=== PATIENT | male | born 1975 | race African-American/Black ===

== ENCOUNTER 2022-10-19 23:11 | Emergency (ER) | payer MEDICAID ==
[~2022-10-19] VITALS: Ht 193 cm; Wt 105.0 kg
[2022-10-19 23:15] VITALS: BP 162/90; PULSE 90; RESP 18; TEMP 99.3; O2SAT 99
[2022-10-19] MEDS ORDERED: RISPERIDONE 1MG TABLET PO ONE (23:30)
[2022-10-19] MEDS ORDERED: BUPROPION HCL 75MG TABLET PO ONE (23:30)
== END 2022-10-20 | disposition left against medical advice (07) ==
LOC: ER 23:11
DX: R45.851 Suicidal ideations (principal); F15.90 Other stimulant use, unspecified, uncomplicated
CPT/HCPCS: 99283

== ENCOUNTER 2022-10-20 00:53 | Emergency (ER) | payer MEDICAID, OTHER ==
[~2022-10-20] VITALS: Ht 193 cm; Wt 98.3 kg
[2022-10-20 01:13] VITALS: BP 136/95
[2022-10-20] MEDS ORDERED: ONDANSETRON 4MG ODT PO STA (01:32)
[2022-10-20] MEDS ORDERED: MAGNESIUM/ALUMINUM HYDROXIDE/SIMETHICONE 30ML UDC PO STA (01:32)
[2022-10-20 01:55] LABS: CLARITY URINE CLEAR (CLEAR); COLOR URINE YELLOW (YELLOW); KETONES URINE 1+ (NEGATIVE); LEUKOCYTE ESTERASE URINE NEGATIVE (NEGATIVE); NITRITE URINE NEGATIVE (NEGATIVE); OCCULT BLOOD URINE NEGATIVE (NEGATIVE); PROTEIN URINE TRACE (NEGATIVE); SPECIFIC GRAVITY URINE 1.022 (1.005-1.030)
[2022-10-20 02:30] LABS: *AMPHETAMINES SCREEN URINE PRESUMTIVE POSITIVE (NEGATIVE); *BARBITURATES SCREEN URINE NEGATIVE (NEGATIVE); *BENZODIAZEPINES SCREEN URINE NEGATIVE (NEGATIVE); *COCAINE SCREEN URINE NEGATIVE (NEGATIVE); CANNABINOID URINE SCREEN PRESUMTIVE POSITIVE (NEGATIVE); METHADONE URINE SCREEN NEGATIVE (NEGATIVE); OPIATES URINE SCREEN NEGATIVE (NEGATIVE); PHENCYCLIDINE URINE SCREEN NEGATIVE (NEGATIVE)
== END 2022-10-20 02:26 | disposition left against medical advice (07) ==
LOC: ER 00:53
DX: R10.9 Unspecified abdominal pain (principal); I10 Essential (primary) hypertension; E11.9 Type 2 diabetes mellitus without complications; F12.10 Cannabis abuse, uncomplicated; F15.10 Other stimulant abuse, uncomplicated; F10.20 Alcohol dependence, uncomplicated; Z00.00 Encounter for general adult medical examination without abnormal findings; Z86.59 Personal history of other mental and behavioral disorders; Y90.9 Presence of alcohol in blood, level not specified
CPT/HCPCS: 80305; 81003; 99283

== ENCOUNTER 2023-02-23 18:48 | Emergency (ER) | payer MEDICAID, OTHER ==
[~2023-02-23] VITALS: Ht 195.6 cm; Wt 108.0 kg
[2023-02-23 19:11] VITALS: BP 153/96; PULSE 120; RESP 16; TEMP 98.6; O2SAT 100
== END 2023-02-23 19:35 | disposition left against medical advice (07) ==
LOC: ER 18:48
DX: R45.851 Suicidal ideations (principal); F12.10 Cannabis abuse, uncomplicated; F15.10 Other stimulant abuse, uncomplicated; I10 Essential (primary) hypertension; E11.9 Type 2 diabetes mellitus without complications; Z53.21 Procedure and treatment not carried out due to patient leaving prior to being seen by health care provider; Z88.5 Allergy status to narcotic agent; Z86.59 Personal history of other mental and behavioral disorders
CPT/HCPCS: 99281

== ENCOUNTER 2023-02-23 21:17 | Emergency (ER) | payer MEDICAID, OTHER ==
[~2023-02-23] VITALS: Ht 175.3 cm; Wt 82.0 kg
[2023-02-23 21:34] VITALS: BP 140/88; PULSE 92; RESP 18; TEMP 98.4; O2SAT 98
[2023-02-23] MEDS ORDERED: OLANZAPINE 5MG TABLET ODT PO ONE (22:45)
[2023-02-23] MEDS ORDERED: LORAZEPAM 1MG TABLET PO ONE (22:45)
[2023-02-23 22:55] LABS: BASOPHILS % 0.7 % (0.0-2.0); EOSINOPHILS % 0.4 % (0.0-5.0); HEMOGLOBIN. 14.3 g/dL (14.0-18.0); LYMPHOCYTES % 16.9 % (20.0-50.0); MEAN CORPUSCULAR HEMOGLOBIN 29.1 pg (28.0-32.0); MEAN CORPUSCULAR HGB CONC 34.1 g/dL (31.0-37.0); MEAN CORPUSCULAR VOLUME 85.2 fL (80.0-94.0); MEAN PLATELET VOLUME 9.8 fl (7.4-10.4); MONOCYTES % 10.6 % (2.0-8.0); NEUTROPHILS % 71.4 % (40.0-76.0); PLATELET 191 x1000/uL (130-400); RED BLOOD CELL COUNT 4.93 mill/uL (4.7-6.1); RED CELL DISTRIBUTION WIDTH 14.4 % (11.6-14.6); WHITE BLOOD COUNT 7.4 x1000/uL (4.5-11.0)
[2023-02-23 23:07] LABS: CHLORIDE 96 mEq/L (98-107); INDEX HEMOLYSI 1 (1-3); INDEX ICTERIC 1 (1-4); INDEX LIPEMIC 1 (1-3); POTASSIUM 3.7 mEq/L (3.5-5.1); SODIUM 131 mEq/L (136-145)
[2023-02-23 23:16] LABS: ACETAMINOPHEN <2 ug/mL ug/mL (10-30); ALANINE AMINOTRANSFERASE 37 IU/L (13-61); ALBUMIN 4.3 g/dL (3.4-5.0); ASPARTATE AMINOTRANSFERASE 37 IU/L (15-37); BILIRUBIN TOTAL 0.7 mg/dL (0.1-1.0); CALCIUM 8.9 mg/dL (8.5-10.1); CARBON DIOXIDE 22 mEq/L (21-32); CREATININE 1.1 mg/dL (0.6-1.3); ETHANOL BLOOD 12 mg/dL (<10); GLUCOSE 325 mg/dL (70-105); NT PRO B-TYPE NATRIURETIC PEP 13 pg/mL (5-125); PROTEIN TOTAL 8.5 g/dL (6.0-8.3); UREA NITROGEN BLOOD 21 mg/dL (7-21)
[2023-02-23 23:52] LABS: TROPONIN I HIGH SENSITIVITY 11 ng/L (<78)
== END 2023-02-23 23:27 | disposition left against medical advice (07) ==
LOC: ER 21:17
DX: R07.89 Other chest pain (principal); F15.10 Other stimulant abuse, uncomplicated; F32.9 Major depressive disorder, single episode, unspecified; E11.9 Type 2 diabetes mellitus without complications; I10 Essential (primary) hypertension; F20.9 Schizophrenia, unspecified; F12.10 Cannabis abuse, uncomplicated
CPT/HCPCS: 36415; 80053; 80307; 80320; 80329; 83880; 84484; 85025; 93005; 99284; G0480